=== PATIENT | female | born 1945 ===

== ENCOUNTER 2018-06-28 12:30 | Inpatient (IN) | payer OTHER ==
[~2018-06-28] VITALS: Ht 152.4 cm; Wt 61.2 kg
[2018-07-06] MEDS ORDERED: DOCUSATE SODIU100 MG PO (09:36)
[2018-07-06] MEDS ORDERED: PERCOCET 5-3251 EACH PO (09:38)
[2018-07-06] MEDS ORDERED: CLONAZEPAM0.5 MG PO (09:38)
== END 2018-07-08 12:52 | disposition home or self-care (01) | DRG 454 ==
LOC: O/R 07-06 04:30 → SURH 07-06 07:00 → SURG 07-06 14:01 → SURH 07-06 18:56
PROVIDERS: ADMIT Orthopaedic Surgery Orthopaedic Surgery of the Spine
PROC: 0RT30ZZ Resection of Cervical Vertebral Disc, Open Approach (ICD-10-PCS; 2018-07-06)
PROC: 07DS3ZZ Extraction of Vertebral Bone Marrow, Percutaneous Approach (ICD-10-PCS; 2018-07-06)
PROC: 4A12X4Z Monitoring of Cardiac Electrical Activity, External Approach (ICD-10-PCS; 2018-07-06)
PROC: 0RG2071 Fusion of 2 or more Cervical Vertebral Joints with Autologous Tissue Substitute, Posterior Approach, Posterior Column, Open Approach (ICD-10-PCS; 2018-07-06)
PROC: 0RG20A0 Fusion of 2 or more Cervical Vertebral Joints with Interbody Fusion Device, Anterior Approach, Anterior Column, Open Approach (ICD-10-PCS; principal; 2018-07-06 07:00)
DX: M47.12 Other spondylosis with myelopathy, cervical region (principal); M50.01 Cervical disc disorder with myelopathy, high cervical region; E11.9 Type 2 diabetes mellitus without complications